=== PATIENT | male | born 1980 | race Caucasian/White ===

== ENCOUNTER 2022-03-09 13:07 | Outpatient (CLI) | payer BC, SELFPAY ==
[2022-03-09 19:56] LABS: Cholesterol* 206 mg/dL (90-199); HDL Cholesterol* 31 mg/dL (>=40); LDL Cholesterol Calculated 118 mg/dL (<100); Triglycerides* 284 mg/dL (40-149)
== END 2022-03-09 13:08 | disposition home or self-care (01) ==
PROVIDERS: PCP Physician Assistant Medical; Visit Provider Physician Assistant Medical
DX: Z00.00 Encounter for general adult medical examination without abnormal findings (principal); R03.0 Elevated blood-pressure reading, without diagnosis of hypertension; B35.3 Tinea pedis; Z13.6 Encounter for screening for cardiovascular disorders
CPT/HCPCS: 80061; 84443

== ENCOUNTER 2022-03-25 08:05 | Outpatient (CLI) | payer BC, SELFPAY | END 2022-03-25 08:06 | disposition home or self-care (01) | PROVIDERS: PCP Physician Assistant Medical; Visit Provider Physician Assistant Medical | DX: Z82.79 Family history of other congenital malformations, deformations and chromosomal abnormalities (principal) | CPT/HCPCS: 93306; 93320; 93325 ==